=== PATIENT | female | born 1990 | race Caucasian/White ===

== ENCOUNTER 2018-02-15 09:47 | Inpatient (IN) | payer MEDICAID, OTHER ==
[2018-02-12 10:35] VITALS: BMI 34.7
[2018-02-15] MEDS ORDERED: CITRIC ACID-SODIUM CITRATE 15 ML CUP PO ONE (10:11)
[2018-02-15] MEDS ORDERED: LACTATED RINGERS 1,000 ML IV ONE (10:11)
[2018-02-15] MEDS ORDERED: ceFAZolin IN SWFI 2 GM/20 ML SYRINGE IVP ONE (10:11)
[2018-02-15] MEDS ORDERED: LACTATED RINGERS 1,000 ML IV SCH (10:15)
[2018-02-15 10:27] LABS: Basophils % (A) 0 %; Eosinophils # (A) 0.1 k/uL (0-0.7); Eosinophils % (A) 1 %; HCT 33.5 % (34.0-46.0); HGB 11.1 gm/dL (11.4-16.0); Lymphocytes # (A) 1.4 k/uL (1.0-4.8); Lymphocytes % (A) 23 %; MCH 28.4 pg (25.0-35.0); MCHC 33.3 g/dL (31.0-37.0); MCV 85.4 fL (80.0-100.0); Mean Platelet Volume 7.9; Monocytes # (A) 0.3 k/uL (0-1.0); Monocytes % (A) 5 %; Neutrophils # (A) 4.4 k/uL (1.3-7.7); Neutrophils % (A) 70 %; Platelet Count 168 k/uL (150-450); RBC 3.92 m/uL (3.80-5.40); RDW 14.7 % (11.5-15.5); WBC 6.3 k/uL (3.8-10.6)
[2018-02-15] MEDS ORDERED: NALOXONE 0.4 MG/ML 1 ML VIAL IV PRN ×2 (12:10→13:23)
[2018-02-15] MEDS ORDERED: NALBUPHINE 10 MG/ML AMPUL IV PRN (12:10)
[2018-02-15] MEDS ORDERED: diphenhydrAMINE 50 MG/ML 1 ML VIAL IVP PRN ×3 (12:10→13:23)
[2018-02-15] MEDS ORDERED: OXYTOCIN 10 UNIT/ML 1 ML VIAL ONE (12:15)
[2018-02-15] MEDS ORDERED: PHENYLEPHRINE-0.9% NACL SYG 1 MG/10 ML SYRINGE ONE (12:15)
[2018-02-15] MEDS ORDERED: LACTATED RINGERS 1,000 ML BAG IV ONE (12:15)
[2018-02-15] MEDS ORDERED: ONDANSETRON 4 MG/2 ML VIAL ONE (12:15)
[2018-02-15] MEDS ORDERED: NALBUPHINE 10 MG/ML AMPUL ONE (12:15)
[2018-02-15] MEDS ORDERED: ePHEDrine SULFATE/0.9% NACL/PF 50 MG/5 ML SYRINGE IV ONE (12:15)
[2018-02-15] MEDS ORDERED: MORPHINE SULFATE (PF) 0.3 MG/0.3 ML SYR ONE (12:15)
[2018-02-15] MEDS ORDERED: ACETAMINOPHEN IV (For NPO) 1,000 MG in EMPTY BAG 1 BAG IVPB ONE (13:23)
[2018-02-15] MEDS ORDERED: diphenhydrAMINE 50 MG CAP PO PRN (13:23)
[2018-02-15] MEDS ORDERED: HYDROcodone/APAP 7.5-325MG 1 EACH TAB PO PRN (13:23)
[2018-02-15] MEDS ORDERED: ACETAMINOPHEN TAB 325 MG TAB PO PRN (13:23)
[2018-02-15] MEDS ORDERED: ONDANSETRON 4 MG/2 ML VIAL IVP PRN (13:23)
[2018-02-15] MEDS ORDERED: HYDROcodone/APAP 5-325MG 1 EACH TAB PO PRN (13:23)
[2018-02-15] MEDS ORDERED: LANOLIN CREAM 5 GM TUBE TOPICAL PRN (13:23)
[2018-02-15] MEDS ORDERED: ZOLPIDEM 5 MG TAB PO PRN (13:23)
[2018-02-15] MEDS ORDERED: METOCLOPRAMIDE 5 MG/ML 2 ML VIAL IVP PRN (13:23)
[2018-02-15] MEDS ORDERED: diphenhydrAMINE 25 MG CAP PO PRN (13:23)
[2018-02-15] MEDS ORDERED: IBUPROFEN IV 800 MG in SODIUM CHLORIDE 0.9% 250 ML IV ONE (13:24)
--- NOTE | 2018-02-15 13:26 | P.HPOB ---
History of Present Illness H&P Date: 02/15/18 Chief Complaint: IUP @ 39 weeks, h/o c/s x 1 This is a very pleasant 27-year-old 2 para 1001 at 39 0/7 weeks with an estimated due date of 02/22 based on last menstrual period. Patient has a history of a prior section secondary to failure to progress and hip surgery as a child with persistent occiput posterior presentation. Patient has been receiving care with myself since 8 weeks of gestation. care has been essentially uncomplicated with the only noted gestational anemia that was diagnosed at 33-3/7 weeks' patient began taking iron at that time. On blood work she has a blood type of O+, rubella immune, RPR nonreactive, hepatitis B surface antigen negative, HIV negative, group beta strep was also negative on 01/22. Review of Systems Constitutional: Denies chills, Denies fever Cardiovascular: Reports edema Respiratory: Denies cough, Denies dyspnea Gastrointestinal: Denies constipation, Denies diarrhea Genitourinary: Reports Past Medical History Additional Past Medical History / Comment(s): anemia,hypoglycemia History of Any Multi-Drug Resistant Organisms: None Reported Past Surgical History: Section, Hernia Repair, Orthopedic Surgery Additional Past Surgical History / Comment(s): arthroscopic left hip surg Past Anesthesia/Blood Transfusion Reactions: No Reported Reaction Additional Past Anesthesia/Blood Transfusion Reaction / Comment(s): emotional after anesthesia Past Psychological History: Anxiety Smoking Status: Never smoker Past Alcohol Use History: None Reported Past Drug Use History: None Reported - Past Family History Mother Family Medical History: No Reported History Medications and Allergies Home Medications Medication Instructions Recorded Confirmed Type Ferrous Sulfate [Iron] 325 mg PO DAILY 02/12/18 02/15/18 History Pnv No.95/Ferrous Fum/Folic AC 1 each PO DAILY 02/12/18 02/15/18 History [ Multivitamin Tablet] Allergies Allergy/AdvReac Type Severity Reaction Status Date / Time orange Allergy Rash/Hives Verified 02/15/18 10:10 orange juice [[place]] Allergy Rash/Hives Verified 02/15/18 10:10 Exam Osteopathic Statement: *. No significant issues noted on an osteopathic structural exam other than those noted in the History and Physical/Consult. - Vital Signs Vital signs: Vital Signs Temp Pulse Resp BP Pulse Ox 02/15/18 10:17 97.8 F 100 16 114/72 100 Intake and Output 02/14/18 02/15/18 02/15/18 22:59 06:59 14:59 Other: Weight 86.183 kg - OBG Physical Exam Abdomen: Gravid Uterus: enlarged (Appropriate for gestational age) Results Result Diagrams: 02/15/18 10:12 Abnormal Lab Results - Last 24 Hours (Table) 02/15/18 Range/Units 10:12 Hgb 11.1 L (11.4-16.0) gm/dL Hct 33.5 L (34.0-46.0) % Assessment and Plan (1) Term Current Visit: Yes Status: Acute Code(s): Z34.80 - ENCOUNTER FOR SUPRVSN OF NORMAL , UNSP TRIMESTER SNOMED Code(s): 32376587 (2) H/O section Current Visit: Yes Status: Acute Code(s): Z98.891 - HISTORY OF UTERINE SCAR FROM PREVIOUS SURGERY SNOMED Code(s): 937194527 Plan: plan for repeat section. Surgery has been reviewed with the patient in detail informed consent was obtained. Risks were reviewed including but not limited to infection, bleeding, damage to bladder, bowel, injury. Patient states understanding at this time.
[2018-02-15] MEDS: OXYTOCIN 20 UNITS/1000 ML NS 1,000 ML IV SCH ×2 (13:34→14:32)
[2018-02-15] MEDS: LACTATED RINGERS 1,000 ML IV SCH (16:25)
[2018-02-16] MEDS: LACTATED RINGERS 1,000 ML IV SCH ×2 (01:04→21:03)
[2018-02-16] MEDS: SENNOSIDES-DOCUSATE SODIUM 1 EACH TAB PO SCH ×3 (01:04→21:03)
[2018-02-16 01:16] LABS: Hepatitis C IgG Antibody Non-Reactive (Non-Reactive)
--- NOTE | 2018-02-16 06:20 | P.PN ---
Progress Note - Text Progress Note Date: 02/16/18 Postoperative day 1 status post section under spinal anesthesia and intrathecal Duramorph for postoperative analgesia.The patient is doing well, there is mild generalized skin itching. There are no other anesthesia related complications. Further management as per the patient primary team.
[2018-02-16] MEDS: IBUPROFEN 600 MG TAB PO PRN ×3 (08:05→22:47)
[2018-02-16 08:54] LABS: Basophils % (A) 0 %; Eosinophils # (A) 0.2 k/uL (0-0.7); Eosinophils % (A) 2 %; HCT 31.1 % (34.0-46.0); HGB 10.5 gm/dL (11.4-16.0); Lymphocytes # (A) 1.1 k/uL (1.0-4.8); Lymphocytes % (A) 12 %; MCH 28.8 pg (25.0-35.0); MCHC 33.7 g/dL (31.0-37.0); MCV 85.6 fL (80.0-100.0); Mean Platelet Volume 7.8; Monocytes # (A) 0.5 k/uL (0-1.0); Monocytes % (A) 6 %; Neutrophils # (A) 6.9 k/uL (1.3-7.7); Neutrophils % (A) 79 %; Platelet Count 157 k/uL (150-450); RBC 3.63 m/uL (3.80-5.40); WBC 8.8 k/uL (3.8-10.6)
[2018-02-16 08:56] VITALS: RESP 16
[2018-02-16] MEDS ORDERED: PRENATAL VIT-IRON-FOLIC ACID 1 EACH CAP PO SCH (12:00)
[2018-02-16] MEDS ORDERED: FERROUS SULFATE 325 MG TAB PO SCH (12:00)
--- NOTE | 2018-02-16 12:31 | P.PNOBGPC ---
Subjective - Subjective Principal diagnosis: POD 1 RCS Interval history: Fabiana has done well postoperatively, she is ambulating and voiding without difficulty. she is without difficulty. lochia is noted to be minimal in nature. tolerating a regular diet, without n/v. Patient reports: Reports appetite normal, Reports voiding normally, Reports pain well controlled, Reports ambulating normally (c/o right shoulde pain) [place]: doing well, nursing well Objective - Vital Signs Latest vital signs: Vital Signs Temp Pulse Resp BP Pulse Ox 02/16/18 08:00 98.7 F 88 16 107/65 02/16/18 05:49 14 02/16/18 04:00 98.2 F 85 16 100/59 99 02/16/18 02:00 16 97 02/16/18 00:00 98.7 F 89 16 99/59 99 02/15/18 21:46 16 97 02/15/18 20:00 98.1 F 77 16 101/62 98 02/15/18 18:05 18 02/15/18 16:21 96.0 F L 77 18 106/59 99 02/15/18 16:00 96.0 F L 77 18 106/59 02/15/18 15:10 18 98 02/15/18 15:06 96.9 F L 90 18 110/59 98 02/15/18 14:36 99.4 F 91 18 103/55 02/15/18 14:06 98.4 F 96 18 125/63 98 02/15/18 13:55 85 18 112/66 02/15/18 13:39 98.3 F 84 18 112/71 99 02/15/18 13:23 18 100 02/15/18 13:13 97.6 F Intake and Output 02/15/18 02/16/18 02/16/18 22:59 06:59 14:59 Output Total 500 500 150 Balance -500 -500 -150 Output: Urine 500 500 150 Uretheral (Dominguez) 500 500 Other: # Voids 0 0 1 - Exam Extremities: Present: normal, edema Abdomen: Present: normal appearance, soft Incision: Present: normal, dry, intact Uterus: Present: firm (firm below the umbilicus) - Labs Labs: Abnormal Lab Results - Last 24 Hours (Table) 02/16/18 Range/Units 08:28 RBC 3.63 L (3.80-5.40) m/uL Hgb 10.5 L (11.4-16.0) gm/dL Hct 31.1 L (34.0-46.0) % Assessment and Plan (1) Term Current Visit: Yes Status: Acute Code(s): Z34.80 - ENCOUNTER FOR SUPRVSN OF NORMAL , UNSP TRIMESTER SNOMED Code(s): 54018691 (2) H/O section Current Visit: Yes Status: Acute Code(s): Z98.891 - HISTORY OF UTERINE SCAR FROM PREVIOUS SURGERY SNOMED Code(s): 703226117 (3) Status post section Current Visit: Yes Status: Acute Code(s): Z98.891 - HISTORY OF UTERINE SCAR FROM PREVIOUS SURGERY SNOMED Code(s): 077270336 Plan: will offer simethicoone for gas pain, and continue routine post operative care. increase ambulation and advance diet as tolerated.
--- NOTE | 2018-02-16 12:44 | P.OP ---
Date of Procedure: 02/15/18 Preoperative Diagnosis: IUP @ 39 weeks, h/o section x 1 Postoperative Diagnosis: Same Anesthesia: spinal Surgeon: Nilsa King Hazardous Waste Remover #1: Ilana Navarrete Estimated Blood Loss (ml): 600 IV fluids (ml): 800 Urine output (ml): 600 Pathology: none sent Condition: stable Disposition: observation Indications for Procedure: History of 1, desires repeat Operative Findings: normal uterus, fallopian tubes and ovaries Description of Procedure: The patient was prepped and draped in the usual fashion after spinal anesthesia was administered by anesthesia. A Pfannenstiel incision was made and extended of the abdominal cavity without difficulty. The bladder peritoneum was elevated and incised and reflected distally. A 2 cm incision was made in the transverse plane of the lower uterine segment to enter the uterus at which time clear fluid was noted. The incision was extended in both directions using the bandage scissors. The head was encountered within the field and delivered up and through the incision where the nose and mouth were thoroughly suctioned. Remainder of the infant was delivered onto the surgical field where the cord was doubly clamped, cut, and the infant was passed for resuscitative measures with weight and Apgars as noted above. A segment of cord was then doubly clamped, cut, and set aside should cord gases become necessary. The placenta was delivered manually, intact, and was grossly normal with a grossly normal three-vessel cord. The uterus was exteriorized and the interior cavity of the uterus swept of any remaining placental and membranous fragments with a laparotomy sponge. The margins of the incision were grasped with allis clamps and the incision closed in 2 layers. First layer was a running locking layer of 0 vicryl from margin to margin followed by a second layer of imbricating 0 vicryl from margin to margin. Any small points of bleeding were then made hemostatic with the Bovie. Once hemostasis was achieved, the posterior cul-de- sac was suctioned with a guard and the uterine and ovarian findings are as noted above. The uterus was replaced within the abdominal cavity and the gutters swept of any remaining blood fluid or clot. The incision was again reexamined and hemostasis was noted to be excellent. Any small point of bleeding were made hemostatic with the Bovie. Once hemostasis was achieved the parietal peritoneum was loosely reapproximated. The layer of muscles were examined and made hemostatic with the Bovie. Attention was then turned to the fascia which was closed with 2 running stitches of 0 Vicryl proceeding from the lateral margins to the midpoint. The subcutaneous tissues were irrigated, made hemostatic with the Bovie, and reapproximated with a running stitch of 30 Vicryl. The skin was reapproximated with 4-0 Vicryl. Estimated blood loss for the case was approximately 600 mL. All sponge instrument and needle counts are correct. There were no complications. The patient tolerated the procedure well and proceeded to the recovery room in stable condition. Both mother and infant are resting comfortably in recovery. female infant weight 8-2, at 12:39, apgars 8-9 at 1 and 5 minutes respectively
[2018-02-16] MEDS: SIMETHICONE 80 MG CHEWABLE PO SCH ×2 (18:31→21:03)
[2018-02-17] MEDS: SIMETHICONE 80 MG CHEWABLE PO SCH ×2 (00:17→10:12)
[2018-02-17] MEDS: SENNOSIDES-DOCUSATE SODIUM 1 EACH TAB PO SCH (07:44)
[2018-02-17] MEDS: IBUPROFEN 600 MG TAB PO PRN (07:45)
--- NOTE | 2018-02-17 08:24 | P.DS ---
Providers Date of admission: 02/15/18 09:47 Expected date of discharge: 02/17/18 Attending physician: Nilsa King Primary care physician: Donell Rodriguez - Discharge Diagnosis(es) (1) Term Current Visit: Yes Status: Acute (2) H/O section Current Visit: Yes Status: Acute (3) Status post section Current Visit: Yes Status: Acute Hospital Course: This he is a very pleasant 27-year-old 2 para 1001 at 39-0/7 weeks that presented to labor and delivery on 611 for scheduled repeat section. Patient had a prior section and elected repeat. The was performed without difficulty for further details on the please see the operative report. Patient had delivery of a viable female at 1239, weight of 8 lbs. 2 oz., Apgars of 8 and 9 at one and 5 minutes respectively. Patient's postoperative course has been uneventful. On this postop day #2 she is ambulating and voiding without difficulty. She states her lochia is minimal. She denies nausea or vomiting and is tolerating a regular diet. She states her pain is well-controlled with oral medications. She does desire discharge home today. Plan - Discharge Summary Discharge Rx Participant: Yes New Discharge Prescriptions: No Action Pnv No.95/Ferrous Fum/Folic AC [ Multivitamin Tablet] 1 each PO DAILY Ferrous Sulfate [Iron] 325 mg PO DAILY Discharge Medication List Ferrous Sulfate [Iron] 325 mg PO DAILY 02/12/18 [History] Pnv No.95/Ferrous Fum/Folic AC [ Multivitamin Tablet] 1 each PO DAILY [History] Follow up Appointment(s)/Referral(s): Nilsa King DO [Doctor of Osteopathic Medicine] - 1 Week Patient Instructions/Handouts: (DC) Discharge Disposition: HOME SELF-CARE
[2018-02-17 08:37] VITALS: BP 115/73; PULSE 78; TEMP 98.4
== END 2018-02-17 11:00 | disposition home or self-care (01) | DRG 766 ==
LOC: 4FBP 09:47
PROVIDERS: ADMIT Obstetrics & Gynecology Obstetrics; ATTEND Obstetrics & Gynecology Obstetrics
PROC: 10D00Z1 Extraction of Products of Conception, Low, Open Approach (ICD-10-PCS; principal; 2018-02-15 12:00)
DX: O34.219 Maternal care for unspecified type scar from previous cesarean delivery (principal); O99.344 Other mental disorders complicating childbirth; F41.9 Anxiety disorder, unspecified; O99.02 Anemia complicating childbirth; D64.9 Anemia, unspecified; O99.62 Diseases of the digestive system complicating childbirth; K21.9 Gastro-esophageal reflux disease without esophagitis; Z37.0 Single live birth; Z3A.39 39 weeks gestation of pregnancy
CPT/HCPCS: 85025; 86701; 86704; 86803; 86850; 86900; 86901; 87340

== ENCOUNTER → 2018-09-27 | Outpatient (CLI) | payer MEDICAID ==
--- NOTE | 2018-09-27 10:36 | US ---
EXAMINATION TYPE: Ultrasound OB <= 14 weeks transvaginal DATE OF EXAM: 09/27/2018 COMPARISON: NONE CLINICAL HISTORY: 28-year-old female O20.0Threatened . Probable blighted ovum- patient had an ultrasound in the office last week, rescan to confirm EXAM PERFORMED: Transvaginal (TV) and Transabdominal (TA) FINDINGS: EXAM MEASUREMENTS: GESTATIONAL AGE / DATING Physician Established: Not yet established Dates by LMP: (8 weeks/3 days) EDC: 05/06/2019 Dates by First Scan: No previous this is first scan at this facility ( Dates by Current Scan for: (6 weeks/3 days)- by gestational sac only. No pole or yolk sac visua lized MATERNAL ANATOMY Uterus: 10.4 x 6.1 x 7.4 cm . scar is demonstrated with prominent 4 mm area of hypoechogeni city. Right Ovary: 3.2 x 1.9 x 2.8 cm Left Ovary: 2.5 x 1.0 x 2.1 cm Post CDS / Adnexa: Tiny amount of free fluid visualized in cul de sac Presence of free fluid: Yes Presence of corpus luteal cyst: Yes, right ovary measuring 2.4 x 1.7 x 1.8 cm Presence of subchorionic bleed: No GESTATION / SURVEY MSD: 1.97cm (6 weeks/3 days) Yolk Sac (normal less than 6mm): No yolk sac visualized IUP: No yolk sac or pole visualized Date of LMP: 07/30/2018 Beta HcG (if available): Not available at this time Car Repossessor notes: Probable blighted ovum visualized. Probable corpus luteal cyst visualized right ov ross measuring 2.4 x 1.7 x 1.8 cm. Small anechoic area visualized near patient's scar measur ing 0.5 x 0.3 x 0.4 cm IMPRESSION: 1. Cystic collection along the fundal endometrium with MSD of 2.0 cm. If this represents a gestationa l sac, at this size, a yolk sac and pole should be visualized. Differential considerations incl ude failed /blighted ovum and nonvisualized ectopic . The former is favored. Correl ate with appropriate down trending beta hCGs. Ultrasound follow-up as indicated. 2. scar with a small 4 mm scar niche.
== END ==
LOC: RADUSWWP 09:38
PROVIDERS: ATTEND Obstetrics & Gynecology Obstetrics
DX: O20.0 Threatened abortion (principal)
CPT/HCPCS: 76801; 76817

== ENCOUNTER → 2018-09-27 | Outpatient (CLI) | payer MEDICAID ==
[2018-09-27 11:20] LABS: Basophils % (A) 1 %; Eosinophils # (A) 0.1 k/uL (0-0.7); Eosinophils % (A) 1 %; HCT 43.9 % (34.0-46.0); HGB 14.6 gm/dL (11.4-16.0); Lymphocytes # (A) 1.6 k/uL (1.0-4.8); Lymphocytes % (A) 25 %; MCH 29.2 pg (25.0-35.0); MCHC 33.3 g/dL (31.0-37.0); MCV 87.8 fL (80.0-100.0); Mean Platelet Volume 6.7; Monocytes # (A) 0.3 k/uL (0-1.0); Monocytes % (A) 4 %; Neutrophils # (A) 4.4 k/uL (1.3-7.7); Neutrophils % (A) 67 %; Platelet Count 256 k/uL (150-450); RDW 13.2 % (11.5-15.5); WBC 6.6 k/uL (3.8-10.6)
== END | disposition home or self-care (01) ==
LOC: LABPAT 10:16
PROVIDERS: ATTEND Obstetrics & Gynecology Obstetrics
DX: O02.1 Missed abortion (principal); Z01.812 Encounter for preprocedural laboratory examination
CPT/HCPCS: 36415; 84702; 85025

== ENCOUNTER 2018-09-28 09:27 | Day surgery (SDC) | payer MEDICAID, OTHER ==
[2018-09-27 11:35] VITALS: BMI 30.2
--- NOTE | 2018-09-28 07:53 | P.HPOB ---
History of Present Illness H&P Date: 09/28/18 Chief Complaint: blighted ovum This is a 28-year-old 2 para 1001 at supposedly 6 weeks of gestation that presented for ultrasound evaluation/dating of the given she is nursing her 6-month-old . On ultrasound an empty gestational sac was noted along with a hemorrhagic corpus luteum cyst. Further correlation with quantitative beta hCGs of 32,000, and a progesterone of 12 were done. Patient denies spotting or cramping at this time. Repeat ultrasound was done with similar findings of an empty gestational sac measuring 6 weeks 3/7 days, no yolk sac no pole. Review of Systems Constitutional: Denies chills, Denies fatigue, Denies fever Ears, nose, mouth and throat: Denies headache Cardiovascular: Reports edema, Denies leg edema Respiratory: Denies cough, Denies dyspnea Gastrointestinal: Denies constipation, Denies diarrhea, Denies nausea, Denies vomiting Genitourinary: Reports Past Medical History Past Medical History: Blood Disorder Additional Past Medical History / Comment(s): HX Anemia. Occ hypoglycemia. MISSED AB CURRENTLY. History of Any Multi-Drug Resistant Organisms: None Reported Past Surgical History: Section, Hernia Repair, Orthopedic Surgery Additional Past Surgical History / Comment(s): Arthroscopic left hip surg Past Anesthesia/Blood Transfusion Reactions: Motion Sickness Additional Past Anesthesia/Blood Transfusion Reaction / Comment(s): emotional after anesthesia Smoking Status: Never smoker - Past Family History Mother Family Medical History: No Reported History Medications and Allergies Home Medications Medication Instructions Recorded Confirmed Type Pnv No.95/Ferrous Fum/Folic AC 1 each PO DAILY 02/12/18 09/27/18 History [ Multivitamin Tablet] Allergies Allergy/AdvReac Type Severity Reaction Status Date / Time orange Allergy Rash/Hives Verified 09/27/18 11:19 orange juice [[place]] Allergy Rash/Hives Verified 09/27/18 11:19 Exam Osteopathic Statement: *. No significant issues noted on an osteopathic structural exam other than those noted in the History and Physical/Consult. Targeted physical exam was performed on this patient in general this is a well- nourished well-developed female in no acute distress, lungs are noted to be clear to auscultation bilaterally and patient exhibits unlabored breathing, heart is noted to have regular rate and rhythm, abdomen is soft and nontender. Lower extremities are without edema. Assessment and Plan (1) Blighted ovum Status: Acute Code(s): O02.0 - BLIGHTED OVUM AND NONHYDATIDIFORM MOLE SNOMED Code(s): 53186870 Plan: Options were discussed with the patient including medical/surgical management. Patient elected suction D&C. Procedure was reviewed with patient and all questions were answered.
[~2018-09-28 09:27] MED LIST: Pre Op ABX Message 1 EACH MISC MISCELLANE ONE
[2018-09-28 09:57] VITALS: RESP 16
[2018-09-28] MEDS ORDERED: LACTATED RINGERS 1,000 ML IV ONE ×2 (10:06)
[2018-09-28 10:13] LABS: Glucose,Whole Blood 84 mg/dL (75-99)
[2018-09-28] MEDS ORDERED: PROPOFOL 10 MG/ML 20 ML VIAL IV ONE (10:14)
[2018-09-28] MEDS ORDERED: KETOROLAC 30 MG/ML 1 ML VIAL ONE (10:14)
[2018-09-28] MEDS ORDERED: SILVER NITRATE APPLICATOR 1 EACH STICK..EA. TOPICAL ONE (10:39)
--- NOTE | 2018-09-28 10:43 | P.OP ---
Date of Procedure: 09/28/18 Preoperative Diagnosis: Blighted ovum Postoperative Diagnosis: Same Procedure(s) Performed: Suction dilation and curettage Anesthesia: MAC Surgeon: Nilsa King Estimated Blood Loss (ml): 10 IV fluids (ml): 500 Urine output (ml): 100 Pathology: other (Uterine contents) Condition: stable Disposition: PACU Indications for Procedure: Blighted ovum Operative Findings: Moderate amount of products of conception cleared from the uterine cavity. Description of Procedure: Patient is seen in the preoperative area and procedures reviewed once again. All questions are answered and patient states understanding and wishes to proceed. Patient was taken back to the operating suite where anesthesia was obtained by the anesthesia department. She was then prepped and draped in normal sterile fashion in the dorsal lithotomy position. A red rubber catheter was then used to drain the bladder clear yellow urine. A weighted speculum was placed in the posterior vaginal vault the interval of the cervix was visualized and grasped with a single-tooth tenaculum. Cervix was then serially dilated to 18-Chinese. An 8 curved suction curet was then placed through the cervix and toward the uterus was uterine fundus was gently palpated the suction was activated and a moderate amount of products of conception were cleared from the uterine cavity. 3 passes were used of the suction curette. A gentle sharp curettage was then performed and no further products were appreciated. Once again the suction curette was placed through the cervix and toward the uterine fundus. No further products of conception were noted on this pass. Afterwards the single-tooth tenaculum was removed from the anterior lip of cervix small amount bleeding was noted in a [id number] suture of 4-0 chromic was used to obtain hemostasis. Minimal bleeding was noted from the uterine cervix. Next All counts are correct 2 patient tolerated procedure well and was taken the recovery room awake and in stable condition.
[2018-09-28 10:56] VITALS: TEMP 98
[2018-09-28 11:38] VITALS: BP 117/84; PULSE 91
== END 2018-09-28 12:00 | disposition home or self-care (01) ==
LOC: OR 09:27
PROVIDERS: ATTEND Obstetrics & Gynecology Obstetrics
DX: O02.0 Blighted ovum and nonhydatidiform mole (principal)
CPT/HCPCS: 86900; 86901; 88305; 86850; 59820; J1885; J2704

== ENCOUNTER 2019-08-11 21:57 | Outpatient (CLI) | payer MEDICAID, OTHER ==
[2019-08-11 23:19] VITALS: BP 116/76; PULSE 109; RESP 16; TEMP 98
--- NOTE | 2019-08-29 09:59 | P.MSEPDOC ---
Presenting Problems - Arrival Data Date of Arrival on Unit: 08/11/19 Time of Arrival on Unit: 21:57 Mode of Transport: Ambulatory - Complaint OB-Reason for Admission/Chief Complaint: Pain Medical History - Information : 4 Para: 2 Term: 2 : 0 Abortions: Spontaneous or Elective: 1 Number of Living Children: 2 - Gestational Age Gestational Age by NAYELI (wks/days): 30 Weeks and 0 Days Review of Systems - Review of Systems Constitutional: No problems Breast: No problems ENT: No problems Cardiovascular: No problems Respiratory: No problems Gastrointestinal: No problems Genitourinary: No problems Musculoskeletal: No problems Neurological: No problems Skin: No problems Vital Signs - Temperature Temperature: 98 F Temperature Source: Oral - Pulse Right Brachial Pulse Rate: 109 Pulse Assessment Method: Automatic Cuff - Respirations Respiratory Rate: 16 Oxygen Delivery Method: Room Air O2 Sat by Pulse Oximetry: 100 - Blood Pressure Right Arm Blood Pressure: 116/76 Blood Pressure Mean: 89 Blood Pressure Source: Automatic Cuff Medical Screen Scoring (Pre) - Cervical Exam Dilation: Exam Deferred Effacement: Exam Deferred Membranes: Intact - Uterine Contractions Frequency: N/A Duration: N/A Intensity: N/A - Maternal Vital Signs Maternal Temperature: N/A Signs of Preeclampsia: N/A Maternal Respirations: N/A - Maternal Trauma Maternal Trauma: N/A - Assessment - Baby A Baseline FHR: 135 Heart Rate - NICHD Category: Category I (Normal) = 0 NST: Reactive - Total Score - Baby A Total Score - Baby A: 0 - Total Score - Baby B Total Score - Baby B: 0 - Total Score - Baby C Total Score - Baby C: 0 - Level of Risk - Baby A Level of Risk - Baby A: Low (0-5) - Level of Risk - Baby B Level of Risk - Baby B: Low (0-5) - Level of Risk - Baby C Level of Risk - Baby C: Low (0-5) Physician Notification (Pre) - Physician Notified Physician Notified Date: 08/11/19 Physician Notified Time: 22:51 New Order Received: Yes - Notification Comment Comment: No contractions on montior after 50 mins, pt no longer feeling contractions. Pt seeing Dr. King weekly for NST due to polyhydramnios. Orders t o d/c pt home and follow up in the office with Dr. King tomorrow. Disposition - Disposition OB Disposition: Discharge to home, Written follow up instructions reviewed Discharge Date: 08/11/19 Discharge Time: 22:58 I agree with the RN Medical Screening Exam: No Risk & Benefit of care provided described in d/c instruction: No Diagnosis: 30 WEEKS GESTATION OF
== END 2019-08-11 22:57 | disposition home or self-care (01) ==
LOC: FBPOP 21:57
PROVIDERS: ATTEND Obstetrics & Gynecology
DX: O26.93 Pregnancy related conditions, unspecified, third trimester (principal); Z3A.30 30 weeks gestation of pregnancy
CPT/HCPCS: 59025; 99213

== ENCOUNTER 2019-08-29 12:06 | Outpatient (CLI) | payer MEDICAID, OTHER ==
--- NOTE | 2019-08-29 14:06 | US ---
EXAMINATION TYPE: US OB BPP wo non-stress DATE OF EXAM: 08/29/2019 COMPARISON: NONE CLINICAL HISTORY: polyhydramnios. BPP EXAM PERFORMED: Transabdominal (TA) BPP PARAMETERS: PRESENTATION: Breech HEART RATE: 137 bpm RHYTHM: Normal PENNY: 24.2 cm DIAPHRAGM IMAGED: Yes BPP SCORIN. Breathin (1 episode of breathing of 30 second duration in 30 minutes of scanning time) 2. Movement: 2 (at least 3 discrete body movements in 30 minutes) 3. Tone: 2 (1 episode of active flexion/extension of limb) 4. PENNY: 2 (PENNY index > 5cm). Amniotic fluid index is measured at 24 cm. TOTAL SCORE: 8 / 8 IMPRESSION: Normal biophysical profile
[2019-08-29 14:36] VITALS: BP 115/70; PULSE 102; RESP 16; TEMP 96.5
--- NOTE | 2019-09-10 10:58 | P.MSEPDOC ---
Presenting Problems - Arrival Data Date of Arrival on Unit: 08/29/19 Time of Arrival on Unit: 12:06 Mode of Transport: Ambulatory - Complaint OB-Reason for Admission/Chief Complaint: NST Medical History - Information : 4 Para: 2 Term: 2 : 0 Abortions: Spontaneous or Elective: 1 Number of Living Children: 2 - Gestational Age Gestational Age by NAYELI (wks/days): 32 Weeks and 4 Days - History Complications: Prior Comment: polyhydraminos Review of Systems - Review of Systems Constitutional: No problems Breast: No problems ENT: No problems Cardiovascular: No problems Respiratory: No problems Gastrointestinal: No problems Genitourinary: No problems Musculoskeletal: No problems Neurological: No problems Skin: No problems Vital Signs - Temperature Temperature: 96.5 F Temperature Source: Temporal Artery Scan - Pulse Right Pulse Rate: 102 Pulse Assessment Method: Pulse Oximetry - Respirations Respiratory Rate: 16 O2 Sat by Pulse Oximetry: 98 - Blood Pressure Right Arm Blood Pressure: 115/70 Blood Pressure Mean: 85 Blood Pressure Source: Automatic Cuff Medical Screen Scoring (Pre) - Cervical Exam Dilation: Exam Deferred Effacement: Exam Deferred Membranes: Intact - Uterine Contractions Frequency: > or = 36 weeks =2 Duration: > 40 seconds = 2 Intensity: N/A - Maternal Vital Signs Maternal Temperature: N/A Maternal Blood Pressure: N/A Signs of Preeclampsia: N/A Maternal Respirations: N/A - Maternal Trauma Maternal Trauma: N/A - Assessment - Baby A Baseline FHR: 135 Heart Rate - NICHD Category: Category I (Normal) = 0 NST: Non-reactive = 3 Position: N/A Station: N/A - Total Score - Baby A Total Score - Baby A: 7 - Total Score - Baby B Total Score - Baby B: 4 - Total Score - Baby C Total Score - Baby C: 4 - Level of Risk - Baby A Level of Risk - Baby A: Medium (6-9) - Level of Risk - Baby B Level of Risk - Baby B: Low (0-5) - Level of Risk - Baby C Level of Risk - Baby C: Low (0-5) Physician Notification (Pre) - Physician Notified Physician Notified Date: 08/29/19 Physician Notified Time: 14:10 New Order Received: Yes - Notification Comment Comment: Dr Chang reported on pts BPP /, +fm per pt, palpation and a uscultation. Orders to d/c home with instructions to keep scheduled appt in office, return with new or worsening sx Disposition - Disposition OB Disposition: Discharge to home Discharge Date: 08/29/19 Discharge Time: 14:15 I agree with the RN Medical Screening Exam: Yes Risk & Benefit of care provided described in d/c instruction: Yes Diagnosis: RELATED CONDITIONS, UNSPECIFIED, THIRD TRIMESTER
== END 2019-08-29 14:15 | disposition home or self-care (01) ==
LOC: FBPOP 12:06
PROVIDERS: ATTEND Obstetrics & Gynecology
DX: O26.93 Pregnancy related conditions, unspecified, third trimester (principal); Z3A.32 32 weeks gestation of pregnancy
CPT/HCPCS: 59025; 76819; 99213; 99215

== ENCOUNTER 2019-10-06 13:04 | Inpatient (IN) | payer MEDICAID, OTHER ==
[2019-10-06] MEDS ORDERED: LIDOCAINE 0.5% (PF) 5 MG/ML (50 ML SDV) SQ PRN (16:03)
[2019-10-06] MEDS ORDERED: CITRIC ACID-SODIUM CITRATE 15 ML CUP PO ONE (16:07)
[2019-10-06] MEDS: LACTATED RINGERS 1,000 ML IV SCH (16:27)
[2019-10-06 16:32] LABS: Basophils # (A) 0.1 k/uL (0-0.2); Basophils % (A) 1 %; Eosinophils # (A) 0.1 k/uL (0-0.7); Eosinophils % (A) 1 %; HCT 36.6 % (34.0-46.0); HGB 11.9 gm/dL (11.4-16.0); Hypochromasia Slight; Lymphocytes # (A) 1.8 k/uL (1.0-4.8); Lymphocytes % (A) 22 %; MCHC 32.5 g/dL (31.0-37.0); MCV 83.2 fL (80.0-100.0); Mean Platelet Volume 8.7; Monocytes # (A) 0.4 k/uL (0-1.0); Monocytes % (A) 5 %; Neutrophils # (A) 5.7 k/uL (1.3-7.7); Neutrophils % (A) 69 %; Platelet Count 190 k/uL (150-450); Poikilocytosis Slight; RDW 13.3 % (11.5-15.5); WBC 8.2 k/uL (3.8-10.6)
[2019-10-06] MEDS ORDERED: HYDROcodone/APAP 5-325MG 1 EACH TAB PO PRN (16:52)
[2019-10-06] MEDS ORDERED: diphenhydrAMINE 25 MG CAP PO PRN (16:52)
[2019-10-06] MEDS ORDERED: ZOLPIDEM 5 MG TAB PO PRN (16:52)
[2019-10-06] MEDS ORDERED: NALOXONE 0.4 MG/ML 1 ML VIAL IV PRN (16:52)
[2019-10-06] MEDS ORDERED: diphenhydrAMINE 50 MG CAP PO PRN (16:52)
[2019-10-06] MEDS ORDERED: diphenhydrAMINE 50 MG/ML 1 ML VIAL IVP PRN ×2 (16:52)
[2019-10-06] MEDS ORDERED: ONDANSETRON 4 MG/2 ML VIAL IVP PRN (16:52)
[2019-10-06] MEDS ORDERED: METOCLOPRAMIDE 5 MG/ML 2 ML VIAL IVP PRN (16:52)
--- NOTE | 2019-10-06 16:52 | P.HPOB ---
History of Present Illness H&P Date: 10/06/19 Chief Complaint: IUP @ 38 2/7 weeks, polyhydramnios, ctx This is a 29-year-old at 38-2/7 weeks that presents to labor and delivery with complaints of contractions and rupture of membranes. Amnisure was noted to be negative with patient was rajesh quite regularly. Patient does note good movement, no VB Patient has been receiving routine care and throughout was diagnosed with polyhydramnios. Patient has noted fluid levels that have been consistently 24-29. Patient has been followed with testing that has been reassuring. On bloodwork patient has a blood type of O+, rubella immune, RPR nonreactive, hepatitis B surface antigen negative, HIV negative, she did fail her 1 hour Glucola subsequently passed her 3 hour GTT. Group beta strep was negative on 09/21/19. Review of Systems Constitutional: Denies chills, Denies fatigue, Denies fever Ears, nose, mouth and throat: Denies headache Cardiovascular: Reports leg edema Respiratory: Denies dyspnea Gastrointestinal: Denies constipation, Denies diarrhea, Denies nausea, Denies vomiting Genitourinary: Reports Past Medical History Additional Past Medical History / Comment(s): anemia,hypoglycemia History of Any Multi-Drug Resistant Organisms: None Reported Past Surgical History: Section, Hernia Repair, Orthopedic Surgery Additional Past Surgical History / Comment(s): arthroscopic left hip surg Past Anesthesia/Blood Transfusion Reactions: No Reported Reaction Additional Past Anesthesia/Blood Transfusion Reaction / Comment(s): emotional after anesthesia Past Psychological History: Anxiety Smoking Status: Never smoker Past Alcohol Use History: None Reported Past Drug Use History: None Reported - Past Family History Mother Family Medical History: No Reported History Medications and Allergies Home Medications Medication Instructions Recorded Confirmed Type Pnv No.95/Ferrous Fum/Folic AC 1 each PO DAILY 02/12/10/06/19 History [ Multivitamin Tablet] Allergies Allergy/AdvReac Type Severity Reaction Status Date / Time orange Allergy Rash/Hives Verified 10/06/19 13:39 orange juice [[place]] Allergy Rash/Hives Verified 10/06/19 13:39 Exam Osteopathic Statement: *. No significant issues noted on an osteopathic st ructural exam other than those noted in the History and Physical/Consult. 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 Cervical exam is deferred as she was just checked by the nurse. Results Result Diagrams: 10/06/19 16:05 Assessment and Plan (1) Polyhydramnios Current Visit: Yes Status: Acute Code(s): O40.9XX0 - POLYHYDRAMNIOS, UNSP TRIMESTER, NOT APPLICABLE OR UNSP SNOMED Code(s): 80730312 (2) H/O section Current Visit: No Status: Acute Code(s): Z98.891 - HISTORY OF UTERINE SCAR FROM PREVIOUS SURGERY SNOMED Code(s): 183636437 (3) Term Current Visit: No Status: Acute Code(s): Z34.80 - ENCOUNTER FOR SUPRVSN OF NORMAL , UNSP TRIMESTER SNOMED Code(s): 20215081 Plan: Patient is admitted to labor and delivery for repeat section with tubal ligation, given patient's history of polyhydramnios and consistent contractions, is discussed with the patient today along with tubal ligation. Risser reviewed including but not limited to infection, bleeding, damage to bladder, bowel, ureteric, injury. Patient states she is done with childbearing and is desirous of tubal ligation.
[2019-10-06] MEDS ORDERED: LACTATED RINGERS 1,000 ML IV SCH (17:00)
[2019-10-06] MEDS ORDERED: OXYTOCIN 20 UNITS/1000 ML NS 1,000 ML IV SCH (17:00)
[2019-10-06] MEDS ORDERED: OXYTOCIN 10 UNIT/ML 1 ML VIAL ONE (17:10)
[2019-10-06] MEDS ORDERED: ePHEDrine SULFATE/0.9% NACL/PF 50 MG/5 ML SYRINGE IV ONE (17:10)
[2019-10-06] MEDS ORDERED: MORPHINE SULFATE (PF) 0.3 MG/0.3 ML SYR ONE (17:10)
[2019-10-06] MEDS ORDERED: ONDANSETRON 4 MG/2 ML VIAL ONE (17:10)
[2019-10-06] MEDS ORDERED: PHENYLEPHRINE-0.9% NACL SYG 1 MG/10 ML SYRINGE ONE (17:10)
[2019-10-06] MEDS ORDERED: ACETAMINOPHEN IV (For NPO) 1,000 MG in EMPTY BAG 1 BAG IVPB ONE (17:30)
[2019-10-06] MEDS ORDERED: IBUPROFEN IV 800 MG in SODIUM CHLORIDE 0.9% 250 ML IV ONE (18:00)
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
[2019-10-06] MEDS ORDERED: NALBUPHINE 10 MG/0.5 ML (20 mL MDV) IM ONE (18:06)
[2019-10-07] MEDS: LACTATED RINGERS 1,000 ML IV SCH (02:16)
[2019-10-07 07:12] LABS: Basophils % (A) 0 %; Eosinophils # (A) 0.1 k/uL (0-0.7); Eosinophils % (A) 1 %; HCT 28.8 % (34.0-46.0); HGB 9.3 gm/dL (11.4-16.0); Hypochromasia Slight; Lymphocytes # (A) 1.5 k/uL (1.0-4.8); Lymphocytes % (A) 18 %; MCHC 32.1 g/dL (31.0-37.0); MCV 83.9 fL (80.0-100.0); Mean Platelet Volume 8.8; Monocytes # (A) 0.5 k/uL (0-1.0); Monocytes % (A) 6 %; Neutrophils # (A) 6.1 k/uL (1.3-7.7); Neutrophils % (A) 73 %; Platelet Count 152 k/uL (150-450); Poikilocytosis Slight; RBC 3.43 m/uL (3.80-5.40); RDW 13.5 % (11.5-15.5); WBC 8.3 k/uL (3.8-10.6)
--- NOTE | 2019-10-07 08:04 | P.PN ---
Progress Note - Text 10/07 734am 29-year-old female status post with a spinal Duramorph. Patient seen and evaluated this morning for postop pain control with a VAS of 2. No complains of nausea vomiting or pruritus.
[2019-10-07] MEDS: SENNOSIDES-DOCUSATE SODIUM 1 EACH TAB PO SCH ×2 (08:14→20:12)
[2019-10-07] MEDS: IBUPROFEN 600 MG TAB PO PRN ×4 (08:14→23:59)
[2019-10-07] MEDS ORDERED: PRENATAL VIT-IRON-FOLIC ACID 1 EACH CAP PO SCH (09:00)
--- NOTE | 2019-10-07 09:03 | P.PNOBGPC ---
Subjective - Subjective Principal diagnosis: POD 1 RCS with TL Interval history: Patient is doing well postoperatively. She is involuting without difficulty. We are awaiting spontaneous void after Dominguez removal. Lochia is minimal. She states her pain is controlled this morning. She is breast-feeding. Patient reports: Reports appetite normal, Reports pain well controlled, Reports ambulating normally : doing well Objective - Vital Signs Latest vital signs: Vital Signs Temp Pulse Resp BP Pulse Ox 10/07/19 08:17 98.1 F 81 18 94/67 10/07/19 04:00 98.1 F 86 16 98/62 100 10/06/19 23:51 98.4 F 98 18 101/70 99 10/06/19 20:06 96.9 F L 98 18 107/68 99 10/06/19 19:36 97.5 F L 96 16 104/63 99 10/06/19 19:06 95 18 104/63 99 10/06/19 18:53 103 H 16 100/64 99 10/06/19 18:37 89 18 111/65 99 10/06/19 18:23 86 16 104/59 99 10/06/19 18:06 98.7 F 79 16 105/63 98 10/06/19 16:19 98.4 F 89 16 118/75 99 10/06/19 16:03 98.2 F 110 H 18 116/72 96 Intake and Output 10/06/19 10/07/19 10/07/19 22:59 06:59 14:59 Intake Total 800 480 Output Total 900 Balance -100 480 Intake: IV 800 Oral 480 Output: Urine 100 Estimated Blood Loss 800 Other: Weight 85.729 kg - Exam Extremities: Present: normal, edema Abdomen: Present: normal appearance, soft Incision: Present: normal, dry, intact Uterus: Present: normal, firm - Labs Labs: Abnormal Lab Results - Last 24 Hours (Table) 10/07/19 Range/Units 06:34 RBC 3.43 L (3.80-5.40) m/uL Hgb 9.3 L D (11.4-16.0) gm/dL Hct 28.8 L (34.0-46.0) % Assessment and Plan (1) Polyhydramnios Current Visit: Yes Status: Acute Code(s): O40.9XX0 - POLYHYDRAMNIOS, UNSP TRIMESTER, NOT APPLICABLE OR UNSP SNOMED Code(s): 50072919 (2) H/O section Current Visit: No Status: Acute Code(s): Z98.891 - HISTORY OF UTERINE SCAR FROM PREVIOUS SURGERY SNOMED Code(s): 736279372 (3) Term Current Visit: No Status: Acute Code(s): Z34.80 - ENCOUNTER FOR SUPRVSN OF NORMAL , UNSP TRIMESTER SNOMED Code(s): 96145197 (4) Status post section Current Visit: No Status: Acute Code(s): Z98.891 - HISTORY OF UTERINE SCAR FROM PREVIOUS SURGERY SNOMED Code(s): 990047734 Plan: Patient is doing well postoperatively. She is ambulating without difficulty we are awaiting a spontaneous void. We will watch closely for spontaneous void. Plan to continue routine post operative care and plan discharge home tomorrow.
[2019-10-08] MEDS: ACETAMINOPHEN TAB 325 MG TAB PO PRN ×2 (02:04→08:25)
[2019-10-08] MEDS: IBUPROFEN 600 MG TAB PO PRN (06:20)
[2019-10-08 08:53] VITALS: BP 109/68; PULSE 86; RESP 16; TEMP 97.5
--- NOTE | 2019-10-08 10:54 | P.DS ---
Providers Date of admission: 10/06/19 16:18 Expected date of discharge: 10/08/19 Attending physician: Nilsa King Primary care physician: Stated None Hospital Course: This is a 29-year-old white female 4 para 2012 EDC 10/20/2019 at 38 weeks gestation. Patient presented in early active labor was a question of spontaneous amniorrhexis. Decision was made to proceed with her repeat section. remarkable for blood type O positive, rubella status immune, group B strep cultures negative. Please see dictated history and physical for details. Repeat was performed. She gave to a liveborn male with scores of 9 and 10 at one and 5 minutes respectively. Infant weight 8 lbs. 1 oz. or 3660 g. Surgery was unremarkable, please see dictated operative note for details. This morning the patient is doing well. She is voiding, ambulating, passing flatus without difficulty. Vital signs are stable and she is afebrile. Fundus is firm and in the midline, symmetric and 18 week size. Extremities are negative for edema. Incision is clean and dry, intact, Steri-Strips applied. [place] is doing well. Patient is judged to be in very good condition for discharge home. She will follow-up in the office in 2 weeks, and call for that appointment. She will continue taking her vitamin daily. She will use [id number] Advil or Aleve as needed for pain, and alternate with Tylenol if needed. [place] infant will follow-up with the research archaeologist as recommended, circumcision has been performed and he is doing well. Contraceptive options have been reviewed, she will discuss this with her outreach assistant upon follow-up. Call with any fevers shakes or chills, foul smelling or copious lochia, with any pain not alleviated by [id number] products, or indeed with any questions or concerns. Patient Condition at Discharge: Good Plan - Discharge Summary Discharge Rx Participant: No New Discharge Prescriptions: No Action Pnv No.95/Ferrous Fum/Folic AC [ Multivitamin Tablet] 1 each PO DAILY Discharge Medication List Pnv No.95/Ferrous Fum/Folic AC [ Multivitamin Tablet] 1 each PO DAILY 02/12/18 [History] Follow up Appointment(s)/Referral(s): Tremp,Nilsa S, DO [Doctor of Osteopathic Medicine] - 2 Weeks Discharge Disposition: HOME SELF-CARE
== END 2019-10-08 12:26 | disposition home or self-care (01) | DRG 785 ==
LOC: FBPOP 13:04 → 4FBP 16:18
PROVIDERS: ADMIT Obstetrics & Gynecology Obstetrics; ATTEND Obstetrics & Gynecology Obstetrics
PROC: 0UL70CZ Occlusion of Bilateral Fallopian Tubes with Extraluminal Device, Open Approach (ICD-10-PCS; 2019-10-06)
PROC: 10D00Z1 Extraction of Products of Conception, Low, Open Approach (ICD-10-PCS; principal; 2019-10-06 17:10)
DX: O34.211 Maternal care for low transverse scar from previous cesarean delivery (principal); O40.3XX0 Polyhydramnios, third trimester, not applicable or unspecified; O99.344 Other mental disorders complicating childbirth; F41.9 Anxiety disorder, unspecified; Z30.2 Encounter for sterilization; Z37.0 Single live birth; Z3A.38 38 weeks gestation of pregnancy
CPT/HCPCS: 59025; 84112; 85025; 86850; 86900; 86901; 88307; 99213

== ENCOUNTER → 2020-10-07 | Outpatient (CLI) | payer OTHER | END | disposition home or self-care (01) | LOC: LABMAIN 16:06 | PROVIDERS: ATTEND Physician Assistant Medical | DX: Z20.822 Contact with and (suspected) exposure to COVID-19 (principal) | CPT/HCPCS: 36415; 86769 ==

== ENCOUNTER 2022-12-16 13:04 | Emergency (ER) | payer OTHER, BC ==
[2022-12-16 13:15] VITALS: RESP 18; TEMP 98.1
[2022-12-16] MEDS ORDERED: IBUPROFEN 400 MG TAB PO STA (13:26)
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
[2022-12-16 16:12] VITALS: BP 124/78; PULSE 94
== END 2022-12-16 16:08 | disposition home or self-care (01) ==
LOC: EC 13:04
DX: S16.1XXA Strain of muscle, fascia and tendon at neck level, initial encounter (principal); F41.9 Anxiety disorder, unspecified; Z91.018 Allergy to other foods; V89.2XXA Person injured in unspecified motor-vehicle accident, traffic, initial encounter; Y92.411 Interstate highway as the place of occurrence of the external cause
CPT/HCPCS: 72072; 72125; 99284

== ENCOUNTER → 2023-07-21 | Outpatient (CLI) | payer BC, OTHER ==
--- NOTE | 2023-07-21 09:31 | US ---
EXAMINATION TYPE: US abdomen complete DATE OF EXAM: 07/21/2023 COMPARISON: NONE CLINICAL INDICATION: Female, 33 years old with history of intermittent sharp upper abdomen pains post pranidol and post fasting. Patient has a Hx of umbilical hernia with repair; TECHNIQUE: Multiple sonographic images of the abdomen are obtained. FINDINGS: EXAM MEASUREMENTS: Liver Length: 16.5 cm Gallbladder Wall: 0.1 cm CBD: 0.2 cm Spleen: 10.8 cm Right Kidney: 10.3 x 4.9 x 5.9 cm Left Kidney: 11.8 x 4.1 5.1 cm METAL CABINET FINISHER NOTES: ? Polyp within neck of gallbladder Pancreas: wnl Liver: wnl Gallbladder: Possible polyp Evidence for sonographic Alfonso's sign: no CBD: wnl Spleen: wnl Right Kidney: wnl Left Kidney: wnl Upper IVC: wnl Abd Aorta: wnl The liver is homogenous. The intrahepatic portion of the IVC and proximal abdominal aorta are within normal limits. No gallbladder wall thickening or surrounding fluid. There is a round echogenic 2 mm lesion within the gallbladder with possible shadowing. Common bile duct is unremarkable. The visual ized portions of the pancreas are homogenous. The spleen is unremarkable. Kidneys are symmetric and free of hydronephrosis. Nonshadowing echogenic 7 mm focus within the right lower pole. No renal les ions are seen. IMPRESSION: 1. No ultrasound evidence for an acute process. 2. 2 mm gallbladder polyp versus nonmobile calculus. 3. Nonshadowing 7 mm echogenic focus within the right renal lower pole which may represent a nonshado wing calculus versus echogenic fat.
== END | disposition home or self-care (01) ==
LOC: RADUSWWP 06:54
PROVIDERS: ATTEND Family Medicine
DX: R10.11 Right upper quadrant pain (principal); N28.89 Other specified disorders of kidney and ureter
CPT/HCPCS: 76700